=== PATIENT | male | born 1950 | race Asian ===

== ENCOUNTER 2020-10-16 15:06 | Emergency (ER) | payer OTHER ==
[~2020-10-16] VITALS: Ht 182.9 cm; Wt 67.1 kg
[2020-10-16 17:43] LABS: PLATELET COUNT 265 K/uL (142-355)
[2020-10-16 17:50] LABS: POTASSIUM 2.8 mmol/L (3.6-5.2)
[2020-10-16 21:21] LABS: PARTIAL THROMBOPLASTIN TIME 21.2 SECONDS (24.5-33.6)
[2020-10-16 23:15] VITALS: BP 87/54; TEMP 98
== END 2020-10-16 23:15 | disposition short-term general hospital (02) ==
LOC: ED 15:06
PROVIDERS: Hospitalist
PROC: 0T9B70Z Drainage of Bladder with Drainage Device, Via Natural or Artificial Opening (ICD-10-PCS; principal; 2020-10-16)
DX: K66.8 Other specified disorders of peritoneum (principal); K27.5 Chronic or unspecified peptic ulcer, site unspecified, with perforation; Z11.52 Encounter for screening for COVID-19
CPT/HCPCS: 36415; 51702; 80053; 81000; 82150; 83690; 85027; 85610; 85730; 87635; 96360; 96361; 96365; 96375; 96376; 99285; J1170; J1885; J2405; J2543; J3490; U0003

== ENCOUNTER 2020-11-07 10:37 | Emergency (ER) | payer OTHER ==
[~2020-11-07] VITALS: Ht 182.9 cm; Wt 67.1 kg
[2020-11-07 10:37] VITALS: TEMP 98
[2020-11-07 11:32] LABS: PLATELET COUNT 267 K/uL (142-355)
[2020-11-07 11:51] LABS: POTASSIUM 4.9 mmol/L (3.6-5.2)
[2020-11-07 12:42] VITALS: BP 98/65
== END 2020-11-07 12:42 | disposition home or self-care (01) ==
LOC: ED 10:37
PROVIDERS: Hospitalist
DX: L89.151 Pressure ulcer of sacral region, stage 1 (principal)
CPT/HCPCS: 36415; 80048; 85027; 96365; 96375; 99284; J1885; J2270; J2405; J3370